=== PATIENT | female | born 1985 | race Asian ===

== ENCOUNTER 2021-01-13 11:00 | Emergency (ER) | payer MEDICAID ==
[~2021-01-13] VITALS: Ht 160 cm; Wt 65.2 kg
[2021-01-13 11:27] VITALS: BP 163/113
[2021-01-13] MEDS ORDERED: mupirocin 2% ointment 22GM TP STA (13:09)
== END 2021-01-13 13:26 | disposition home or self-care (01) ==
LOC: ER 11:01
DX: S50.861A Insect bite (nonvenomous) of right forearm, initial encounter (principal); W57.XXXA Bitten or stung by nonvenomous insect and other nonvenomous arthropods, initial encounter; Y93.89 Activity, other specified; Y92.89 Other specified places as the place of occurrence of the external cause; Y99.8 Other external cause status
CPT/HCPCS: 99283